=== PATIENT | male | born 1960 | race Caucasian/White ===

== ENCOUNTER 2024-01-21 13:34 | Emergency (ER) | payer OTHER, SELFPAY ==
[2024-01-21 13:35] VITALS: BP 119/74; PULSE 87; RESP 17; TEMP 36.4; O2SAT 100; BMI 24.2
[2024-01-21] MEDS: Amox/Clavulanate 875 MG Tablet PO (14:18)
--- NOTE | 2024-01-21 14:22 | EDS_ITS ---
HPI History of Present Illness Chief Complaint: Lower Extremity Injury Narrative Narrative: 64 year old male who denies significant past medical history presents with pain and swelling of his left knee. He relays history that there is an area that is chronically swollen and becomes reddened over the past year on his left lateral knee that occasionally drains pus. 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 A board hit him in the lateral left lower knee, and the area bled, and formed a bigger scab over the area of his chronic wound. day, 2 days ago, he seemed to be doing well, but awoke with increased pain, swelling and redness to his left knee. It is mainly reddened and sore in the area of the prepatellar bursa. He had a fever yesterday as highas 101F. No nausea or vomiting. No other symptoms. PFSH PFSH Home Medications ?Medication ?Instructions ?Recorded ?Last Taken ?Type amoxicillin 875 mg-potassium 1 tab PO BID 10 days #20 tabs 01/21/24 Unknown Rx clavulanate 125 mg tablet Allergy/AdvReac Type Severity Reaction Status Date / Time No Known Allergies Allergy Verified 01/21/24 13:37 ROS [facility] ED Constitutional Constitutional ED: Reports fever(s) Musculoskeletal Musculoskeletal: Reports as per HPI, arthralgias and joint swelling Integumentary Reports other Details: chronic wound left lateral knee. EXAM Physical Exam Narrative Exam Narrative: Afebrile. Vital signs noted. Non toxic appearing. Mild swelling and tenderness left prepatella bursa with mild erythema. No fluctuance under wound left lateral knee. Able to flex and extend left knee. Palpable dorsalis pedis pulse. Regular rate and rhythm. Lungs clear to auscultation bilaterally. Abd soft and nontender. Const Vital Signs: 01/21/24 13:35 Temperature 97.6 F L Temperature Source Temporal Pulse Rate 87 Respiratory Rate 17 Blood Pressure 119/74 Blood Pressure Mean 89 Pulse Ox 100 Oxygen Delivery Method Room Air MDM MDM MDM Narrative Medical decision making narrative: In the differential diagnosis is cellulitis versus prepatellar bursitis or a combination of both. I have low suspicion for septic arthritis as he has range of motion of his left knee and no pain with passive range of motion. I don't feel imaging is indicated or laboratory work as I have low suspicion for fracture. Patient given first dose of Augmentin here and prescription written for the next 10 days. Follow up with orthopaedics and/or primary care. Return instructions reviewed. Ibuprofen OTC for pain and swelling. Patient and comfortable with plan. Disposition is discarged in stable condition. Clinical Impression: 1. Prepatellar bursitis left knee 2 Cellulitis left knee Discharge Plan Triage Chief Complaint: Lower Extremity Injury ED Provider: Juan Muñiz Dx/Rx/DC Orders Instructions: ED Bursitis, ED Cellulitis Prescriptions: New amoxicillin-pot clavulanate 875-125 mg tablet 1 tab PO BID 10 Days Qty: 20 0RF Primary Care Provider: Casimiro Duque Referrals: Marcelino Simpson DO [Med Staff - Active Staff] - 3-5 Days NOT,DEFINED [Non-Staff] - Activity Restrictions/Additional Instructions: You have been diagnosed with prepatella bursitis and/or cellulitis of your left knee. Take antibiotics as directed and continue ibuprofen for pain. Return with fever, increased redness or swelling, new or worsening symptoms. Follow up with your primary care provider or orthopaedics in the next few days. Print Language: Danish Disposition Disposition: Home, Self Care
[2024-01-21 14:46] VITALS: BP 125/88; PULSE 85; RESP 16; TEMP 36.9; O2SAT 98
== END 2024-01-21 14:49 | disposition home or self-care (01) ==
PROVIDERS: Emergency Provider Emergency Medicine; PCP Family Medicine; Visit Provider Emergency Medicine
DX: M70.42 Prepatellar bursitis, left knee (principal); L03.116 Cellulitis of left lower limb
CPT/HCPCS: 99282